=== PATIENT | male | born 1995 | race Hispanic/Latino ===

== ENCOUNTER 2019-10-14 10:50 | Emergency (ER) | payer BC, OTHER, MEDICAID, SELFPAY ==
[2019-10-14 10:59] VITALS: PULSE 71; RESP 18; TEMP 36.4; O2SAT 96; BMI 20.9
--- NOTE | 2019-10-14 11:32 | ED.BACK ---
HPI - Back Pain/Injury <Brenda Segura PA-C - Last Filed: 10/14/19 17:59> General Chief Complaint: Back Pain/Injury Stated Complaint: pain going down back of Rt leg Time Seen by Provider: 10/14/19 11:07 Source: patient Mode of arrival: Ambulatory Limitations: no limitations History of Present Illness HPI Narrative: This 24-year-old male comes to ED secondary to acute low back/gluteal and right leg pain. He states that he does a heavy duty exercise routine, and 2 days ago added his new elliptical customer trainer in which has higher resistance then his old 1. He states about 14 hours later he began to have sharp, spasm type of pain down his right gluteal and posterior leg down to the ankle off and on. He states it is much worse with sitting and worse driving here, better when lying supine or on his side. He states that he can walk okay if he keeps the leg straight, but twisting or bending causes pain. He states that he took some ibuprofen at home and use THC, thought this would resolve on its own but felt like he was having spasms all night last night and has continued today. He denies any acute bowel or bladder changes. He denies any weakness or paresthesia in the extremities and states that is pain that keeps him from moving normally. He states he has had numerous sports injuries over the years but denies any chronic medical problems at all. Denies any history of previous surgery. States he does not have any new problems on systems review aside from this pain Related Data Previous Rx's Medication Instructions Recorded cyclobenzaprine 10 mg PO Q8H #14 tab 10/14/19 ibuprofen 800 mg PO Q8H PRN #20 tab 10/14/19 Allergies Allergy/AdvReac Type Severity Reaction Status Date / Time No Known Drug Allergies Allergy Verified 10/14/19 10:59 Review of Systems <Brenda Segura PA-C - Last Filed: 10/14/19 17:59> Review of Systems ROS Unobtainable: All systems reviewed & are unremarkable except as noted in HPI and below Patient History <JENISE Winston Last Filed: 10/14/19 17:59> Social History Smoking Status: Former smoker Substance Use Type: marijuana and hallucinogens Exam <Brenda Segura PA-C - Last Filed: 10/14/19 17:59> Narrative Exam Narrative: GENERAL APPEARANCE: Patient lying supine comfortably, on cell phone PULMONARY: Lungs clear to auscultation bilaterally CV: Regular rhythm regular without murmur, normal S1 and S2, no S3 or S4 MUSCULOSKELETAL: No point tenderness over the lumbar spine or sacral spine. Mild tenderness over the right mid gluteal and SI area. Lower extremity strength 5/5 bilateral hip flexors, knee extensors, foot plantar flexion. Positive right straight leg raise, negative on the left. Patient ambulates with a limp favoring the right NEUROVASCULAR: Bilateral PT and DP pulses 2+, feet are warm and pink, lower extremity sensation grossly intact Initial Vital Signs Initial Vital Signs: Vital Signs Temperature 97.6 F 10/14/19 10:59 Pulse Rate 71 10/14/19 10:59 Respiratory Rate 18 10/14/19 10:59 Pulse Oximetry 96 10/14/19 10:59 <Betty Schwarz DO - Last Filed: 10/15/19 07:32> Initial Vital Signs Initial Vital Signs: Vital Signs Temperature 97.6 F 10/14/19 10:59 Pulse Rate 71 10/14/19 10:59 Respiratory Rate 18 10/14/19 10:59 Pulse Oximetry 96 10/14/19 10:59 Course <Brenda Segura PA-C - Last Filed: 10/14/19 17:59> Orders Ordered: Discontinued Medications Ibuprofen (Advil) 800 mg PO NOW ONE Stop: 10/14/19 12:00 Last Admin: 10/14/19 12:04 Dose: 800 mg Documented by: SCANAPO Vital Signs Vital signs: Vital Signs - 8 hr 10/14/19 10:59 10/14/19 12:21 Temperature 97.6 F Pulse Rate 71 64 Respiratory Rate 18 16 Blood Pressure [Right Arm] 111/74 Pulse Oximetry 96 99 <Betty Schwarz DO - Last Filed: 10/15/19 07:32> Orders Ordered: Discontinued Medications Ibuprofen (Advil) 800 mg PO NOW ONE Stop: 10/14/19 12:00 Last Admin: 10/14/19 12:04 Dose: 800 mg Documented by: SCANAPO Vital Signs Vital signs: Vital Signs - 8 hr 10/14/19 10:59 10/14/19 12:21 Temperature 97.6 F Pulse Rate 71 64 Respiratory Rate 18 16 Blood Pressure [Right Arm] 111/74 Pulse Oximetry 96 99 Discharge Plan Departure Patient Disposition: Home Clinical Impression: Sciatica Qualifiers: Laterality: right Qualified Code(s): M54.31 - Sciatica, right side Discharge Date/Time: 10/14/19 12:28 Instructions: DI for Sciatica, DI for Back Spasm Activity Restrictions/Additional Instructions: Please take the prescription strength ibuprofen every 8 hours. Add the muscle relaxant cyclobenzaprine as needed, but remember it can make you sleepy and not to drive or do other activity were you need to be alert. You need to stop your work out for now, avoid exacerbating activities such as sitting for long periods, twisting or bending. Gentle walking on flat ground is okay. You can also try topical sports rubs or patches. As we talked about, you should return if you have acute changes such as weakness in your extremities or new troubles with your bowels or bladder. Please call your PCP office today and arrange a follow-up appointment for next week to assess your progress and determine whether any additional referrals or treatment are needed. Prescriptions: New ibuprofen 800 mg tablet 800 mg PO Q8H PRN (Reason: back pain) Qty: 20 RF: 0 cyclobenzaprine 10 mg tablet 10 mg PO Q8H Qty: 14 RF: 0 Referrals: Guillermo Stack MD [Primary Care Provider] -
[2019-10-14] MEDS: IBUPROFEN 400 MG TABLET 800 MG PO (12:04)
[2019-10-14 12:21] VITALS: BP 111/74; PULSE 64; RESP 16; O2SAT 99
== END 2019-10-14 12:28 | disposition home or self-care (01) ==
PROVIDERS: Emergency Provider Internal Medicine; PCP Family Medicine
DX: M54.31 Sciatica, right side (principal)
CPT/HCPCS: 99282; 99283

== ENCOUNTER → 2019-10-15 13:08 | Outpatient (CLI) | payer BC, OTHER, MEDICAID, SELFPAY ==
--- NOTE | 2019-10-15 | DI.US.S_ITS ---
LIMITED ULTRASOUND OF RIGHT BREAST: 10/15/2019 CLINICAL: Palpable right breast lump. No prior exams were available for comparison. Color flow and real-time ultrasound of the right breast retroareolar were performed. Tinoco scale images of the real-time examination were reviewed. Patient reports a focal palpable right breast lump located posterior/central to the nipple in the retroareolar region. Targeted ultrasound of the right nipple, right retroareolar region, and central to the nipple demonstrates heterogeneously echoic breast tissue most consistent with fibroglandular tissue without significant vascularity on Doppler ultrasound in the right retroareolar region, consistent with retroareolar gynecomastia. No well formed mass or other abnormality is identified in the imaged areas of the right breast. IMPRESSION: INCOMPLETE: NEEDS ADDITIONAL IMAGING EVALUATION Findings most consistent with right retroareolar gynecomastia, correlating with the site of the patient's reported focal palpable concern. A diagnostic mammogram is recommended for further evaluation. This exam was interpreted at Station ID: [id number]. Electronically Signed By: Brad Jeter M.D. ecl/:10/15/2019 14:12:28 letter sent: Additional Imaging Needed Ultrasound BI-RADS: 0 Indeterminate
== END ==
PROVIDERS: PCP Family Medicine; Visit Provider Family Medicine
DX: R92.8 Other abnormal and inconclusive findings on diagnostic imaging of breast (principal); N63.15 Unspecified lump in the right breast, overlapping quadrants
CPT/HCPCS: 76642

== ENCOUNTER → 2019-11-03 08:24 | Outpatient (CLI) | payer BC, OTHER, MEDICAID, SELFPAY ==
--- NOTE | 2019-11-03 | DI.MRI.S_ITS ---
PROCEDURE: MR PELVIS WO CON INDICATIONS: Pain in right leg TECHNIQUE: Noncontrast axial and coronal T1 spin echo and STIR through the lumbosacral plexus region. Optional contrast may be given, followed by axial and coronal T1 spin echo with fat saturation through the sacral plexus. COMPARISON: None. FINDINGS: Image quality: Excellent. Lumbosacral plexus: Superior to the piriformis muscles, the pre-plexal structures appear normal, including the lumbosacral trunk and S1 root. Just anterior to the piriformis muscles, the sacral plexus proper demonstrates normal morphology (lumbosacral trunk, S1 to S3 nerve roots). Inferior to the piriformis muscles, the sciatic nerves appear normal. Soft tissues: The piriformis muscles appear symmetric in size. No presacral masses. Rectum appears normal in caliber and wall thickness. No pathologic free pelvic fluid. No visualized adenopathy by size criteria. Bones: Marrow is normal in overall signal. IMPRESSION: Source of current symptoms is not seen. No impingement on the lumbosacral plexus is found. No inflammatory process along the course of the right-sided sciatic nerve included in this examination is identified. Dictated by: Eamon Russo M.D. on 11/03/2019 at 11:15 Approved by: Eamon Russo M.D. on 11/03/2019 at 11:16
== END ==
PROVIDERS: PCP Family Medicine; Visit Provider Family Medicine
DX: M79.604 Pain in right leg (principal)
CPT/HCPCS: 72195

== ENCOUNTER → 2019-12-24 13:28 | Outpatient (CLI) | payer BC, OTHER, MEDICAID, SELFPAY ==
--- NOTE | 2019-12-24 13:50 | DI.MG.S_ITS ---
MALE BILATERAL DIGITAL DIAGNOSTIC MAMMOGRAM: 12/24/2019 CLINICAL: Right Breast mass. Comparison is made to exam dated: 10/15/2019 [facility]. The right breast has increased retroareolar density due to gynecomastia that correlates with clinical concern and palpable abnormality. No other suspicious masses, calcifications, or other findings are seen in either breast. IMPRESSION: There is no mammographic evidence of malignancy. Right retroareollar asymmetric soft tissue consistent with gynecomastia corresponds to area of clinical concern. Recommend followup clinically for possible etiology. This exam was interpreted at Station ID: [id number]. NOTE: For mammograms, a report in lay terms will be sent to the patient. Approximately 15% of breast malignancies will not be visualized mammographically. In the management of a palpable breast mass, a negative mammogram must not discourage biopsy of a clinically suspicious lesion. Electronically Signed By: Abiodun martel/:12/24/2019 14:18:39 letter sent: Clinical Evaluation ACR BI-RADS Category 2: Benign Finding(s) 3342F
== END ==
PROVIDERS: PCP Family Medicine; Visit Provider Family Medicine
DX: N62 Hypertrophy of breast (principal)
CPT/HCPCS: 77066

== ENCOUNTER → 2020-03-17 11:07 | Outpatient (CLI) | payer BC, OTHER, MEDICAID, SELFPAY ==
--- NOTE | 2020-03-17 | DI.RAD.S_ITS ---
PROCEDURE: XR LUMBAR SPINE 2-3V INDICATIONS: low back with radiculopathy to TECHNIQUE: 3 views of the lumbar spine were acquired. COMPARISON: [facility], , L-SPINE 2-3 VIEWS, 09/18/2010, 15:39. [facility], , L-SPINE 2-3 VIEWS, 12/25/2016, 15:31. FINDINGS: Bones: 5 [id number] vertebrae are present. There is normal bony alignment. No vertebral body compression fractures. No suspicious bony lesions. The disc heights are well-preserved. Soft tissues: Overlying bowel gas pattern is normal. No suspicious soft tissue calcifications. IMPRESSION: Normal lumbar plain films. Stable from prior. Dictated by: Nathan Selby M.D. on 03/17/2020 at 10:56 Approved by: Nathan Selby M.D. on 03/17/2020 at 10:57
== END ==
PROVIDERS: PCP Family Medicine; Referring Provider Family Medicine; Visit Provider Family Medicine
DX: M54.16 Radiculopathy, lumbar region (principal)
CPT/HCPCS: 72100

== ENCOUNTER → 2020-03-31 12:21 | Outpatient (CLI) | payer BC, SELFPAY ==
--- NOTE | 2020-03-31 | DI.MRI.S_ITS ---
PROCEDURE: MR LUMBAR SPINE WO CON INDICATIONS: Low back pain TECHNIQUE: Noncontrast sagittal T1 spin echo and T2 fast echo, sagittal STIR, axial T1 and T2 fast spin echo through the lumbar spine. In cases with scoliosis, additional coronal T2 fast spin echo may be performed. COMPARISON: None. FINDINGS: Image quality: Excellent. Alignment and Curvature: There is normal bony alignment. Bone Marrow: Marrow is of normal overall signal. No acute vertebral body compression fractures. Spinal Cord: Conus medullaris terminates at the L1-2 disc level. Visualized cord demonstrates normal signal and size. Paraspinous Soft Tissues: No paravertebral masses. T11-T12: Loss of the signal in slight loss of disc height. Mild, diffuse disc bulge. No central stenosis. No neural foraminal narrowing. No neural compression. L1-L2: Loss of disc signal and mild loss of disc height. Mild, diffuse disc bulge. Small central disc protrusion. Mild narrowing of the central canal. No neural foraminal narrowing. No neural compression. L2-L3: Normal appearance. L3-L4: Normal appearance. L4-L5: Normal appearance. L5-S1: Loss of disc signal. Mild, diffuse disc bulge. Small right central disc extrusion. Extruded disc material abuts and slightly compresses and displaces the traversing right S1 nerve root. No central stenosis. Mild right neural foraminal narrowing. IMPRESSION: 1. Mild T12-L1, L1-L2 and L2-L3 degenerative disc disease. 2. Mild L1-L2 central canal narrowing. 3. Mild right L5-S1 neuroforaminal narrowing. 4. Small L5-S1 right central disc extrusion. Extruded disc material displaces and compresses the traversing right S1 nerve root. Please correlate clinically. Dictated by: Ruby Blake MD, PhD on 03/31/2020 at 13:58 Approved by: Ruby Blake MD, PhD on 03/31/2020 at 14:01
== END ==
PROVIDERS: PCP Family Medicine; Referring Provider Family Medicine; Visit Provider Family Medicine
DX: M51.36 Other intervertebral disc degeneration, lumbar region (principal); M51.27 Other intervertebral disc displacement, lumbosacral region; M48.061 Spinal stenosis, lumbar region without neurogenic claudication; M48.07 Spinal stenosis, lumbosacral region
CPT/HCPCS: 72148

== ENCOUNTER → 2025-05-02 13:10 | Outpatient (CLI) | payer OTHER, SELFPAY ==
--- NOTE | 2025-05-02 13:12 | DI.RAD.S_ITS ---
PROCEDURE: XR TIBIA FUBULA RT 2V INDICATIONS: Distal lower leg pain. No trauma TECHNIQUE: 2 views of the tibia and fibula were acquired. COMPARISON: None. FINDINGS: Bones: No acute fractures or dislocations. There is smooth periosteal reaction involving the medial margin of the cortex of the distal right tibial diaphysis. No suspicious bony lesions. Soft tissues: No suspicious soft tissue calcifications or masses. IMPRESSION: Smooth cortical thickening/periosteal reaction involving the medial distal tibial diaphysis consistent with medial tibial stress syndrome/stress fracture. No focal fracture line identified. Consider further characterization with MRI if clinical symptoms do not improve with conservative therapy/rest. Approved by: Cecil Mccollum M.D. on 05/03/2025 at 2:31
== END ==
PROVIDERS: PCP Family Medicine; Referring Provider Family Medicine; Visit Provider Physician Assistant
DX: S86.911A Strain of unspecified muscle(s) and tendon(s) at lower leg level, right leg, initial encounter (principal); X50.3XXA Overexertion from repetitive movements, initial encounter
CPT/HCPCS: 73590